=== PATIENT | female | born 1980 | race Caucasian/White ===

== ENCOUNTER 2018-08-07 17:50 | Emergency (ER) | payer OTHER ==
[~2018-08-07] VITALS: Ht 152.4 cm; Wt 68.3 kg
[2018-08-07 18:28] VITALS: Ht 152.4 cm; Wt 68.3 kg
[2018-08-07] MEDS ORDERED: KETOROLAC 30 MG INJ IM STA (22:24)
[2018-08-08] MEDS ORDERED: IBUP-1542 PO (00:11)
[2018-08-08 00:22] VITALS: BP 118/79; PULSE 87; RESP 16
--- NOTE | 2018-08-08 14:41 | ERD ---
ER Documentation Chief Complaint Chief Complaint C/O PELVIC PAIN AND VAGINAL BLEEDING X1 MONTH HPI Patient is a 39-year-old female with no past medical history presents the ER for concerns of left-sided pelvic pain and vaginal bleeding times 1 month. Patient states she has had vaginal bleeding since 06-22-18. Patient reports using 2-3 pads per day. She reports occasional blood clot passage. Patient denies any lightheadedness or dizziness. Patient denies any fevers or chills. Patient denies any urinary symptoms. Patient has not seen an ADOLESCENT COUNSELOR. Patient denies any rectal bleeding or diarrhea. ROS All systems reviewed and are negative except as per history of present illness. Medications Home Meds Active Scripts Ibuprofen* (Motrin*) 600 Mg Tab, 600 MG PO Q6, #30 TAB Prov:CAMERON SIMON PA-C 08/08/18 Allergies Allergies: Coded Allergies: No Known Allergy (Unverified , 08/07/18) PMhx/Soc Medical and Surgical Hx: pt denies Medical Hx, pt denies Surgical Hx Hx Alcohol Use: No Hx Substance Use: No Hx Tobacco Use: No Smoking Status: Never smoker FmHx Family History: No diabetes, No coronary disease, No other Physical Exam Vitals Vital Signs Date Temp Pulse Resp B/P (MAP) Pulse Ox O2 O2 Flow FiO2 Time Delivery Rate 08/08/18 98.6 87 16 118/79 100 Room Air 00:22 (92) 08/07/18 98.7 94 18 176/98 98 18:28 (124) Physical Exam GENERAL: Well-developed, well-nourished female. Appears in no acute distress. Speaking in full sentences. HEAD: Normocephalic, atraumatic. EYES: Pupils are equally reactive bilaterally. EOMs grossly intact. No conjunctival erythema. NECK: Supple. No meningismus. Normal range of motion of the neck. LUNG: Clear to auscultation bilaterally. No rhonchi, wheezing, rales or coarse breath sounds. HEART: Regular rate and rhythm. No murmurs, rubs or gallops. ABDOMEN:. Soft, and nondistended. Tender to palpation in the left lower quadrant. No rebound tenderness, no guarding. (-) McBurney's point tenderness. No CVA tenderness. EXTREMITIES: Equal pulses bilaterally. No peripheral clubbing, cyanosis or edema. No unilateral leg swelling. NEUROLOGIC: Alert and oriented. Moving all four extremities without any difficulty. Normal speech. Steady gait. SKIN: Normal color. Warm and dry. No rashes or lesions. Result Diagram: 08/07/18223608/07/182236 Results 24 hrs Laboratory Tests Test 08/07/18 22:37 08/07/18 22:52 White Blood Count 7.0 10^3/ul Red Blood Count 4.63 10^6/ul Hemoglobin 13.2 g/dl Hematocrit 40.7 % Mean Corpuscular Volume 87.9 fl Mean Corpuscular Hemoglobin 28.5 pg Mean Corpuscular Hemoglobin Concent 32.4 g/dl Red Cell Distribution Width 12.6 % Platelet Count 352 10^3/UL Mean Platelet Volume 9.5 fl Immature Granulocytes % 0.600 % Neutrophils % 51.6 % Lymphocytes % 32.9 % Monocytes % 11.4 % Eosinophils % 2.8 % Basophils % 0.7 % Nucleated Red Blood Cells % 0.0 /100WBC Immature Granulocytes # 0.040 10^3/ul Neutrophils # 3.6 10^3/ul Lymphocytes # 2.3 10^3/ul Monocytes # 0.8 10^3/ul Eosinophils # 0.2 10^3/ul Basophils # 0.1 10^3/ul Nucleated Red Blood Cells # 0.0 10^3/ul Urine Color YELLOW Urine Clarity CLEAR Urine pH 5.0 Urine Specific Brayton 1.018 Urine Ketones NEGATIVE mg/dL Urine Nitrite NEGATIVE mg/dL Urine Bilirubin NEGATIVE mg/dL Urine Urobilinogen NEGATIVE mg/dL Urine Leukocyte Esterase NEGATIVE Allison/ul Urine Microscopic RBC 54 /HPF Urine Microscopic WBC 0 /HPF Urine Squamous Epithelial Cells FEW /HPF Urine Hemoglobin 3+ mg/dL Urine Glucose NEGATIVE mg/dL Urine Total Protein NEGATIVE mg/dl Sodium Level 141 mmol/L Potassium Level 4.2 mmol/L Chloride Level 99 mmol/L Carbon Dioxide Level 26 mmol/L Anion Gap 16 Blood Urea Nitrogen 14 mg/dl Creatinine 0.51 mg/dl Est Glomerular Filtrat Rate mL/min > 60 mL/min Glucose Level 109 mg/dl Calcium Level 10.6 mg/dl Total Bilirubin 0.1 mg/dl Direct Bilirubin 0.00 mg/dl Indirect Bilirubin 0.1 mg/dl Aspartate Amino Transf (AST/SGOT) 80 IU/L Alanine Aminotransferase (ALT/SGPT) 107 IU/L Alkaline Phosphatase 104 IU/L Total Protein 8.6 g/dl Albumin 4.7 g/dl Globulin 3.90 g/dl Albumin/Globulin Ratio 1.20 Lipase 508 U/L POC Beta HCG, Qualitative NEGATIVE Current Medications Medications Dose Sig/Anuj Start Time Status Last (Trade) Ordered Route PRN Stop Time Admin Dose Reason Admin Ketorolac 15 mg ONCE STAT 08/07/18 DC 08/07/18 Tromethamine IM 22:24 23:18 (Toradol) 08/07/18 22:27 Procedures/MDM ED COURSE: The patient was stable throughout ED course. I kept the patient and/or family informed of laboratory and diagnostic imaging results throughout the ED course. DIAGNOSTIC IMAGING: Read by radiologist. DIAGNOSTIC IMAGING REPORT Patient: NICKIE CALI : 1980 Age: 38 Sex: F MR #: [id number] DOS: 08/07/184 Ordering MD: CAMERON SIMON PA-C Location: [facility] Room/Bed: PROCEDURE: US Pelvis. CLINICAL INDICATION: Pelvic pain, left side. Vaginal bleeding TECHNIQUE: Multiple sonographic images of the pelvis were obtained utilizing a transabdominal and endovaginal technique. The images were reviewed on a PACS workstation. COMPARISON: None available FINDINGS: Uterus: Normal in size, contour and echogenicity with no evidence for myometrial masses. Size is estimated at 8.4 x 5.8 x 4.1 cm. Cervix: No abnormalities of significance are seen. Endometrium: Normal in thickness for the patient's age and presumed premenopausal status; 14.1 mm. Right ovary / adnexa: The ovary is not visualized. There is no evidence of adnexal mass or free fluid. Left ovary/adnexa: Enlarged in size estimated at 5.6 x 5.3 x 3.5 cm. No evidence for solid masses, normal blood flow on Doppler interrogation. Anechoic cyst measuring 5 x 4.8 x 3.2 cm has internal debris and a smaller internal cyst measuring 1.2 x 1 x 1 cm. Cul-de-sac: No evidence of free fluid. RPTAT:EDUARDJR IMPRESSION: 1. Left ovarian enlargement caused by a cyst measuring 5 x 4.8 x 3.2 cm with internal cyst formation and debris. According to the institutional best practice guidelines, a follow-up ultrasound in 6-12 weeks is recommended. 2. Endometrial thickness is believed to be within limits of normal for the patient's provided age and presumed premenopausal status. 3. The right ovary is not visualized. 4. Unremarkable myometrium Physician Anay Date Time Electronically viewed and signed by Lacho Martinez Physician on 08/07/2018 23:26 JR/ CC: CAMERON SIMON PA-C [id number] MEDICATIONS GIVEN: Toradol Patient tolerated medication well with no adverse reactions. Patient reported improvement in pain. MEDICAL DECISION MAKING: This is a 38-year-old female presents the ER for concerns of left-sided pelvic pain and vaginal bleeding times 1 month. Patient denies any dizziness or lightheadedness. Patient denies any fevers or chills. Vital signs were reviewed. Patient was afebrile. Urine test was negative. CBC showed no evidence of systemic infection or severe anemia. CMP showed no severe electrolyte abnormalities, acidosis, alkalosis or renal injury. Patient's AST was noted to be 80, ALT of 107. Patient denied any right upper quadrant pain thus I do not feel the gallbladder ultrasound is indicated at this time. Lipase was noted to be 508 however not 3 times the upper limit. No evidence of acute pink otitis at this time. UA showed no signs of acute infection, 3+ blood and 54 RBCs were noted. These findings are likely related to the patient's vaginal bleeding. Pelvic ultrasound showed left ovarian enlargement caused by a cyst measuring 5 x 4.8 x 3.2 cm with internal cyst formation and debris. Follow-up ultrasound was advised in 6-12 weeks. Endometrial thickness was also noted which likely represents a premenopausal status. Patient was advised follow-up with ADOLESCENT COUNSELOR for further management of symptoms. Referral information provided. Patient was given Toradol here in the ER for pain and she reported improvement. At this time, patient's presentation is most consistent with left ovarian cyst and dysfunctional uterine bleeding. Low suspicion for ectopic , ovarian torsion, PID, tubo-ovarian abscess, fibroids, endometriosis, vulvovaginitis, uterine nephrolithiasis, pyelonephritis, UTI, appendicitis, diverticulitis, bowel obstruction. Patient was nontoxic, [id number] prior to discharge. PRESCRIPTIONS: Ibuprofen DISCHARGE: At this time, patient is stable for discharge and outpatient management. I have instructed the patient to follow-up with his/her primary care physician in 1-2 days. I have discussed with the patient the possibility of needing to see a specialist for further workup and diagnostic studies if the pain persists. I have instructed the patient to promptly return to the ER at any time for any new or worsening symptoms including increased pain, nausea, vomiting, vaginal bleeding, weakness or fever. The patient and/or family expressed understanding of and agreement with this plan. All questions were answered. Home care instructions were provided. Patients blood pressure was elevated (>120/80) but appears stable without evidence of hypertensive emergency, hypertensive urgency or end-organ failure. I had discussion with the patient about the risks of hypertension. I have advised the patient to follow up with his/her primary care physician for outpatient monitoring and treatment for hypertension in 2-3 days. I have instructed the patient to return to the ER for any new or worsening symptoms including chest pain, shortness of breath, headache, blurred vision, confusion, nausea, vomiting or LOC. Disclaimer: Inadvertent spelling and grammatical errors are likely due to EHR/dictation software use and do not reflect on the overall quality of patient care. Also, please note that the electronic time recorded on this note does not necessarily reflect the actual time of the patient encounter. Departure Diagnosis: Primary Impression: Dysfunctional uterine bleeding Additional Impression: Left ovarian cyst Condition: Fair Patient Instructions: What Are Ovarian Cysts?, Dysfunctional Uterine Bleeding Referrals: [facility] Usted se morel hecho un examen mdico de control que le indica que no est en annemarie condicin que requiera tratamiento urgente en el Departamento de Emergencia. Un estudio ms profundo y el tratamiento de sneed condicin pueden esperar sin ningn riesgo hasta que usted sea atendida/o en el consultorio de sneed mdico o annemarie clnica. Es responsabilidad suya arreglar annemarie amrik para el seguimiento del mars. MANEJO DE CONDICIONES NO URGENTES EN EL FUTURO 1) Si usted tiene un mdico de atencin primaria: Usted debera llamar a sneed mdico de atencin primaria antes de venir al departamento de emergencia. Despus de las horas de consultorio, sneed doctor o sneed asociado/a est disponible por telfono. El mdico o enfermero de bell en el servicio telefnico puede asesorarle por marge medio para atender el problema, o mars contrario se puede programar annemarie amrik. 2) Si usted no tiene un mdico de atencin primaria: Llame al mdico o clnica de referencia que aparece abajo dolores las horas de consultorio para hacer annemarie amrik para que le vean. CLINICAS: [place] [id number] [phone] [facility] [phone] [facility] [phone] [facility]. [facility] [phone] [address] [facility]. [place] [phone] [address] [facility]. [phone] [address] [facility]. [facility] () Usted se morel hecho un examen mdico de control que le indica que no est en annemarie condicin que requiera tratamiento urgente en el Departamento de Emergencia. Un estudio ms profundo y el tratamiento de sneed condicin pueden esperar sin ningn riesgo hasta que usted sea atendida/o en el consultorio de sneed mdico o annemarie clnica. Es responsabilidad suya arreglar annemarie amrik para el seguimiento del mars. MANEJO DE CONDICIONES NO URGENTES EN EL FUTURO 1) Si usted tiene un mdico de atencin primaria: Usted debera llamar a sneed mdico de atencin primaria antes de venir al departamento de emergencia. Despus de las horas de consultorio, sneed doctor o sneed asociado/a est disponible por telfono. El mdico o enfermero de bell en el servicio telefnico puede asesorarle por marge medio para atender el problema, o mars contrario se puede programar annemarie amrik. 2) Si usted no tiene un mdico de atencin primaria: Llame al mdico o condado institucions de referencia que aparece abajo dolores las horas de consultorio para hacer annemarie amrik para que le vean. SI USTED NO PUEDE PAGAR PARA [place] UN MEDICO puede ir a: [facility] [address] [place] [address] [facility] [address] [place], [place] [phone] [place] [address] [address] [place] [address] [facility] [address] [place], [place] [phone] ADOLESCENT COUNSELOR [place] [phone] [facility] [address] [place], [place] [phone] OFFICE FAX CHIQUITA WANG [address] [place] [place] [phone] [place] [address] [place], [place] [phone] ROSA JUNELIZANDRO [address] [facility], [address] [phone] AUDELIA POWELL [address] [place], [place] [phone] [facility] [address] [place], [place] [phone] [address] [facility] [id number] - DR BRENNAN, SHANTI [address], [place] [address] DR LEVI, THAI [address] [facility]. [address], [place] [address] DR GREEN, FARID [address] [facility] [place], [place] [phone] Additional Instructions: Necesita annemarie ultrasonido pelvico in 6-12 semanas. [facility]. Llame al doctor MAANA y jayde annemarie AMRIK PARA DENTRO DE 1-2 WYNN.Dgale a la secretaria que nosotros le instruimos hacer esta amrik.Avise o llame si sneed cond icin se empeora antes de la amrik. Regresa aqui si peor o no mejor. CAMERON SIMON PA-C Aug 08, 2018 14:41
== END 2018-08-08 00:23 | disposition home or self-care (01) ==
LOC: FTE 17:50
DX: N93.8 Other specified abnormal uterine and vaginal bleeding (principal); N83.202 Unspecified ovarian cyst, left side
CPT/HCPCS: 36415; 76830; 76856; 80053; 81001; 81025; 83690; 85025; 96372; J1885; Z7502